=== PATIENT | female | born 1975 | race Caucasian/White ===

== ENCOUNTER 2019-10-03 09:24 | Emergency (ER) | payer SELFPAY ==
--- NOTE | 2019-10-03 10:03 | RAD ---
Exam: Chest one view HISTORY:Chest pain Comparison: None FINDINGS: Cardiac silhouette: Normal Aorta: Unremarkable Pulmonary vessels: Normal Costophrenic angles: Clear LUNGS: No masses or consolidation. Pneumothorax: None Osseous abnormalities: None IMPRESSION: No acute cardiopulmonary process.
[2019-10-03] MEDS ORDERED: Sodium Chloride 0.9% 1,000 ML ONE ×2 (10:22→13:28)
[2019-10-03 10:36] LABS: ALT (SGPT) 107 U/L (8-55); AST (SGOT) 258 U/L (5-34); Albumin 3.1 g/dL (3.5-5.0); Alkaline Phosphatase 152 U/L (40-110); Anion Gap 20 mmol/L (10-20); BUN (Urea Nitrogen) Less than 4 mg/dL (7.0-18.7); Bilirubin, Total 4.4 mg/dL (0.2-1.2); CK (CPK) 101 U/L (29-168); Calc. Creatinine Clearance 0 mL/min (70-130); Calcium 8.7 mg/dL (7.8-10.44); Carbon Dioxide 22 mmol/L (22-29); Chloride 94 mmol/L (98-107); Estimated GFR-MDRD Greater than 90; Globulin 2.9 g/dL (2.4-3.5); Glucose 163 mg/dL (70-105); Potassium 3.7 mmol/L (3.5-5.1); Sodium 132 mmol/L (136-145)
[2019-10-03 10:47] LABS: #Basophils 0.1 thou/uL (0.0-0.2); #Eosinphils 0.1 thou/uL (0.0-0.7); #Lymphocytes 1.2 thou/uL (1.20-3.40); #Monocytes 0.5 thou/uL (0.11-0.59); #Neutrophils 7.7 thou/uL (1.40-6.50); %Eosinophils 0.7 % (0.0-10.0); %Lymphocytes 12.7 % (21.0-51.0); %Monocytes 5.2 % (0.0-10.0); %Neutrophils 80.4 % (42.0-75.0); Hemoglobin 9.2 g/dL (12.0-16.0); Hypochromia SLIGHT = 6-15 cells (100X) (0-5/hpf); MDiff Complete? YES; Macrocytosis MODERATE=16-30 cells (100X) (0-5/hpf); Mean Corpuscular HGB CONC 31.5 g/dL (32.0-36.0); Mean Corpuscular Volume 108.2 fL (78.0-98.0); Mean Platelet Volume 7.6 fL (7.4-10.4); Platelet Count 210 thou/uL (130-400); Platelet Morphology Comment Appears Adequate; RBC Distribution Width 14.4 % (11.5-14.5); Red Blood Cell (RBC) Count 2.72 mill/uL (4.20-5.40); White Blood Cell (WBC) Count 9.5 thou/uL (4.8-10.8)
[2019-10-03 10:55] LABS: PTT 26.3 SEC (22.9-36.1); Prothrombin Time 12.8 SEC (12.0-14.7)
[2019-10-03 10:56] LABS: D-Dimer Test 0.41 *mcg/mL (0.27-0.43)
[2019-10-03] MEDS ORDERED: Metoprolol Tartrate 5 MG/5 ML VIAL ONE (11:13)
[2019-10-03] MEDS ORDERED: Sodium Chloride 0.9% 100 ML ONE (12:18)
[2019-10-03] MEDS ORDERED: methylPREDNISolone Sod Succ/PF 125 MG/2 ML VIAL ONE (12:18)
[2019-10-03] MEDS ORDERED: cefTRIAXone\\ROCEPHIN 2 GM VIAL ONE (12:18)
== END 2019-10-03 15:19 | disposition short-term general hospital (02) ==
LOC: MADERS 09:24
DX: J44.1 Chronic obstructive pulmonary disease with (acute) exacerbation (principal); K70.30 Alcoholic cirrhosis of liver without ascites; R00.0 Tachycardia, unspecified; I10 Essential (primary) hypertension; F32.9 Major depressive disorder, single episode, unspecified; G47.00 Insomnia, unspecified; F17.210 Nicotine dependence, cigarettes, uncomplicated
CPT/HCPCS: 36415; 71045; 80053; 82550; 83880; 84484; 85025; 85379; 85610; 85730; 93005; 94760; 96361; 96365; 96375; J0696; J2930; J3490; J7050; J7620

== ENCOUNTER 2021-08-01 08:05 | Emergency (ER) | payer OTHER, SELFPAY ==
[2021-08-01] MEDS ORDERED: Ketorolac Tromethamine 30 MG/ML VIAL ONE (09:06)
[2021-08-01] MEDS ORDERED: AMOXicillin 250 MG CAP ONE (09:06)
== END 2021-08-01 09:24 | disposition home or self-care (01) ==
LOC: MADERS 08:05
DX: K04.7 Periapical abscess without sinus (principal); K02.9 Dental caries, unspecified; I10 Essential (primary) hypertension; F17.210 Nicotine dependence, cigarettes, uncomplicated; Z79.899 Other long term (current) drug therapy
CPT/HCPCS: 96372; 99282; J1885

== ENCOUNTER 2021-08-07 14:36 | Emergency (ER) | payer OTHER ==
[2021-08-07 15:55] LABS: Bilirubin Negative (Negative); Blood, Urine Negative (Negative); Clarity Clear (Clear); Glucose, Urine (Dipstick) Negative (Negative); Ketone, Urine Negative (Negative); Leukocyte Trace (Negative); Nitrite Negative (Negative); Protein, Urine (Dipstick) Negative (Neg-Trace); Urobilinogen 0.2 mg/dL (Less than 2); pH, Urine 5.5 (5.0-9.0)
[2021-08-07 15:57] LABS: Hemoglobin 13.7 g/dL (12.0-16.0); Lymphocytes 40 % (21-51); MDiff Complete? YES; Macrocytosis SLIGHT = 6-15 cells (100X) (0-5/hpf); Mean Corpuscular HGB CONC 31.7 g/dL (32.0-36.0); Mean Corpuscular Hemoglobin 32.4 pg (27.0-31.0); Mean Corpuscular Volume 102.4 fL (78.0-98.0); Mean Platelet Volume 7.1 fL (7.4-10.4); Monocytes 7 % (0-10); Neutrophil 52 % (42-75); Platelet Count 124 thou/uL (130-400); RBC Distribution Width 14.9 % (11.5-14.5); Reactive Lymphocytes 1 % (0-10); Red Blood Cell (RBC) Count 4.23 mill/uL (4.20-5.40); White Blood Cell (WBC) Count 3.8 thou/uL (4.8-10.8)
[2021-08-07 15:58] LABS: Acetaminophen Less than 6.0 mcg/mL (10.0-30.0); Alcohol 274 mg/dL (Less than 10); Salicylate Less than 8.0 mg/dL (15.0-30.0)
[2021-08-07 16:01] LABS: Specific Gravity, Urine 1.004 (1.002-1.036)
[2021-08-07 16:01] LABS: Alcohol 272 mg/dL (Less than 10); CK (CPK) 136 U/L (29-168); CRP (Inflammatory) Less than 0.50 mg/dL (= or < 0.5)
[2021-08-07 16:02] LABS: Bacteria/HPF None Seen HPF (None Seen); RBC/HPF None Seen HPF (0-3); WBC/HPF 0-3 HPF (0-3)
[2021-08-07 16:06] LABS: ALT (SGPT) 573 U/L (8-55); AST (SGOT) 935 U/L (5-34); Albumin 4.2 g/dL (3.5-5.0); Alkaline Phosphatase 150 U/L (40-110); Anion Gap 21 mmol/L (10-20); BUN (Urea Nitrogen) 8 mg/dL (7.0-18.7); Bilirubin, Total 0.6 mg/dL (0.2-1.2); Calc. Creatinine Clearance 0 mL/min (70-130); Calcium 9.2 mg/dL (7.8-10.44); Carbon Dioxide 21 mmol/L (22-29); Chloride 105 mmol/L (98-107); Globulin 2.9 g/dL (2.4-3.5); Glucose 74 mg/dL (70-105); Lipase 21 U/L (8-78); Potassium 4.1 mmol/L (3.5-5.1); Protein, Total 7.1 g/dL (6.0-8.3); Sodium 143 mmol/L (136-145)
[2021-08-07 16:09] LABS: Amphetamine Not Detected (NotDetected); Barbiturates Screen Not Detected (NotDetected); Benzodiazepine Screen Not Detected (NotDetected); Cocaine Metabolite Screen Not Detected (NotDetected); Medtox Control Line Valid? VALID (VALID); Methadone Not Detected (NotDetected); Methamphetamine Not Detected (NotDetected); Opiate Screen Not Detected (NotDetected); Oxycodone Screen Not Detected (NotDetected); Phencyclidine (PCP) Not Detected (NotDetected); THC/Cannabinoid Screen Detected (NotDetected); Tricyclic Screen Not Detected (NotDetected)
== END 2021-08-07 17:00 | disposition home or self-care (01) ==
LOC: MADERS 14:36
DX: K72.90 Hepatic failure, unspecified without coma (principal); F10.129 Alcohol abuse with intoxication, unspecified; F12.10 Cannabis abuse, uncomplicated; I10 Essential (primary) hypertension; G47.00 Insomnia, unspecified; F17.210 Nicotine dependence, cigarettes, uncomplicated; Y90.8 Blood alcohol level of 240 mg/100 ml or more; Z79.899 Other long term (current) drug therapy
CPT/HCPCS: 36415; 71045; 80053; 80306; 80307; 81003; 81015; 82140; 82150; 82550; 83605; 83690; 84484; 85025; 86140

== ENCOUNTER 2022-03-23 10:50 | Emergency (ER) | payer OTHER ==
[2022-03-23 11:41] LABS: #Basophils 0.1 thou/uL (0.0-0.2); #Eosinphils 0.1 thou/uL (0.0-0.7); #Lymphocytes 1.9 thou/uL (1.20-3.40); #Monocytes 0.3 thou/uL (0.11-0.59); %Basophils 1.6 % (0.0-1.0); %Eosinophils 1.1 % (0.0-10.0); %Lymphocytes 35.6 % (21.0-51.0); %Monocytes 6.4 % (0.0-10.0); %Neutrophils 55.3 % (42.0-75.0); Hemoglobin 15.4 g/dL (12.0-16.0); Mean Corpuscular HGB CONC 32.7 g/dL (32.0-36.0); Mean Corpuscular Hemoglobin 33.4 pg (27.0-31.0); Mean Corpuscular Volume 102.3 fL (78.0-98.0); Mean Platelet Volume 8.5 fL (7.4-10.4); Platelet Count 127 thou/uL (130-400); RBC Distribution Width 15.2 % (11.5-14.5); White Blood Cell (WBC) Count 5.3 thou/uL (4.8-10.8)
[2022-03-23 11:50] LABS: INR-International Normal Ratio 0.9; PTT 29.5 sec (22.9-36.1); Prothrombin Time 11.7 sec (12.0-14.7)
[2022-03-23 11:53] LABS: Amphetamine Not Detected (NotDetected); Barbiturates Screen Not Detected (NotDetected); Benzodiazepine Screen Not Detected (NotDetected); Cocaine Metabolite Screen Not Detected (NotDetected); Medtox Control Line Valid? VALID (VALID); Methadone Not Detected (NotDetected); Methamphetamine Not Detected (NotDetected); Opiate Screen Not Detected (NotDetected); Oxycodone Screen Not Detected (NotDetected); Phencyclidine (PCP) Not Detected (NotDetected); THC/Cannabinoid Screen Not Detected (NotDetected); Tricyclic Screen Not Detected (NotDetected)
[2022-03-23 12:00] LABS: ALT (SGPT) 67 U/L (8-55); AST (SGOT) 100 U/L (5-34); Acetaminophen Less than 10.0 mcg/mL (10.0-30.0); Albumin 4.5 g/dL (3.5-5.0); Alcohol 396 mg/dL (Less than 10); Alkaline Phosphatase 58 U/L (40-110); Anion Gap 20 mmol/L (10-20); BUN (Urea Nitrogen) 6 mg/dL (7.0-18.7); Bilirubin, Total 0.3 mg/dL (0.2-1.2); Calc. Creatinine Clearance 0 mL/min (70-130); Calcium 9.1 mg/dL (7.8-10.44); Carbon Dioxide 24 mmol/L (22-29); Chloride 103 mmol/L (98-107); Globulin 2.9 g/dL (2.4-3.5); Glucose 94 mg/dL (70-105); Magnesium 1.8 mg/dL (1.6-2.6); Potassium 4.2 mmol/L (3.5-5.1); Protein, Total 7.4 g/dL (6.0-8.3); Salicylate Less than 8.0 mg/dL (15.0-30.0); Sodium 143 mmol/L (136-145)
[2022-03-23] MEDS ORDERED: Sodium Chloride 0.9% 500 ML ONE (12:42)
== END 2022-03-23 14:00 | disposition home or self-care (01) ==
LOC: MADERS 10:50
DX: F10.129 Alcohol abuse with intoxication, unspecified (principal); I10 Essential (primary) hypertension; G47.00 Insomnia, unspecified; F17.210 Nicotine dependence, cigarettes, uncomplicated; Y90.8 Blood alcohol level of 240 mg/100 ml or more; Z87.19 Personal history of other diseases of the digestive system; Z79.899 Other long term (current) drug therapy
CPT/HCPCS: 36415; 70450; 80053; 80306; 80307; 82140; 83605; 83690; 83735; 85025; 85610; 85730; 93005; 94760; J7030

== ENCOUNTER 2022-07-22 11:22 | Emergency (ER) | payer OTHER ==
[2022-07-22 12:41] LABS: #Basophils 0.1 thou/uL (0.0-0.2); #Eosinphils 0.1 thou/uL (0.0-0.7); #Lymphocytes 2.1 thou/uL (1.20-3.40); #Monocytes 0.3 thou/uL (0.11-0.59); #Neutrophils 2.8 thou/uL (1.40-6.50); %Basophils 1.5 % (0.0-1.0); %Monocytes 4.9 % (0.0-10.0); %Neutrophils 52.6 % (42.0-75.0); Hemoglobin 13.2 g/dL (12.0-16.0); Mean Corpuscular HGB CONC 31.9 g/dL (32.0-36.0); Mean Corpuscular Hemoglobin 31.8 pg (27.0-31.0); Mean Corpuscular Volume 99.8 fL (78.0-98.0); Mean Platelet Volume 7.4 fL (7.4-10.4); Platelet Count 140 thou/uL (130-400); RBC Distribution Width 15.7 % (11.5-14.5); Red Blood Cell (RBC) Count 4.14 mill/uL (4.20-5.40); White Blood Cell (WBC) Count 5.2 thou/uL (4.8-10.8)
[2022-07-22 12:56] LABS: ALT (SGPT) 84 U/L (8-55); AST (SGOT) 110 U/L (5-34); Albumin 4.3 g/dL (3.5-5.0); Alkaline Phosphatase 46 U/L (40-110); Anion Gap 14 mmol/L (10-20); BUN (Urea Nitrogen) 11 mg/dL (7.0-18.7); Bilirubin, Total 0.2 mg/dL (0.2-1.2); Calc. Creatinine Clearance 0 mL/min (70-130); Calcium 8.9 mg/dL (7.8-10.44); Carbon Dioxide 24 mmol/L (22-29); Chloride 107 mmol/L (98-107); Estimated GFR 110; Globulin 2.8 g/dL (2.4-3.5); Glucose 147 mg/dL (70-105); Potassium 3.4 mmol/L (3.5-5.1); Protein, Total 7.1 g/dL (6.0-8.3); Sodium 142 mmol/L (136-145)
== END 2022-07-22 13:07 | disposition home or self-care (01) ==
LOC: MADERS 11:22
DX: R41.82 Altered mental status, unspecified (principal); T43.595A Adverse effect of other antipsychotics and neuroleptics, initial encounter; F34.9 Persistent mood [affective] disorder, unspecified; R74.01 Elevation of levels of liver transaminase levels; I10 Essential (primary) hypertension; G47.00 Insomnia, unspecified; F17.210 Nicotine dependence, cigarettes, uncomplicated; Z79.899 Other long term (current) drug therapy
CPT/HCPCS: 80053; 85025; 99284